=== PATIENT | female | born 1940 | race Native Hawaiian/Other Pacific Islander ===

== ENCOUNTER 2018-12-25 07:15 | Day surgery (SDC) | payer OTHER | END 2018-12-25 08:52 | disposition home or self-care (01) | LOC: OR 07:15 | DX: Z53.8 Procedure and treatment not carried out for other reasons (principal) ==

== ENCOUNTER 2019-01-15 07:28 | Day surgery (SDC) | payer OTHER | END 2019-01-15 08:54 | disposition home or self-care (01) | LOC: OR 07:28 | PROC: 3E0T3BZ Introduction of Anesthetic Agent into Peripheral Nerves and Plexi, Percutaneous Approach (ICD-10-PCS; principal; 2019-01-15) | PROC: 3E0T33Z Introduction of Anti-inflammatory into Peripheral Nerves and Plexi, Percutaneous Approach (ICD-10-PCS; 2019-01-15) | DX: M47.816 Spondylosis without myelopathy or radiculopathy, lumbar region (principal) | CPT/HCPCS: J1100; J2001 ==

== ENCOUNTER → 2019-03-05 | Day surgery (SDC) | payer OTHER | LOC: OR 03:00 | PROC: 3E0T3BZ Introduction of Anesthetic Agent into Peripheral Nerves and Plexi, Percutaneous Approach (ICD-10-PCS; principal; 2019-03-05) | PROC: 3E0T33Z Introduction of Anti-inflammatory into Peripheral Nerves and Plexi, Percutaneous Approach (ICD-10-PCS; 2019-03-05) | DX: M47.816 Spondylosis without myelopathy or radiculopathy, lumbar region (principal) | CPT/HCPCS: J1100; J2001 ==

== ENCOUNTER 2019-04-16 09:49 | Day surgery (SDC) | payer OTHER ==
[~2019-04-16] VITALS: Ht 152.4 cm; Wt 65.8 kg
== END 2019-04-16 13:15 | disposition home or self-care (01) ==
LOC: OR 09:49
PROC: 3E0T3TZ Introduction of Destructive Agent into Peripheral Nerves and Plexi, Percutaneous Approach (ICD-10-PCS; principal; 2019-04-16)
PROC: BR16YZZ Fluoroscopy of Lumbar Facet Joint(s) using Other Contrast (ICD-10-PCS; 2019-04-16)
DX: M47.816 Spondylosis without myelopathy or radiculopathy, lumbar region (principal)
CPT/HCPCS: J2001

== ENCOUNTER 2019-08-01 07:30 | Day surgery (SDC) | payer OTHER ==
[~2019-08-01] VITALS: Ht 30.5 cm; Wt 0.5 kg
== END 2019-08-01 09:20 | disposition home or self-care (01) ==
LOC: OR 07:30
PROC: 3E0T3TZ Introduction of Destructive Agent into Peripheral Nerves and Plexi, Percutaneous Approach (ICD-10-PCS; principal; 2019-08-01)
PROC: BR16YZZ Fluoroscopy of Lumbar Facet Joint(s) using Other Contrast (ICD-10-PCS; 2019-08-01)
DX: M47.816 Spondylosis without myelopathy or radiculopathy, lumbar region (principal)
CPT/HCPCS: J2001